=== PATIENT | male | born 1960 | race Hispanic/Latino ===

== ENCOUNTER 2017-09-08 20:35 | Emergency (ER) | payer MEDICARE ==
[2017-09-08] MEDS ORDERED: NARCAN 0.4 MG/1 ML IV ONE (21:11)
[2017-09-08 22:22] LABS: Hematocrit 39.8 % (35.5-45.6); Mean Corpuscular HGB Conc 33 % (32-34); Mean Corpuscular Hemoglobin 32 pg (28-32); Mean Corpuscular Volume 97 fl (84-94); Platelet Count 296 K/mm3 (140-440); Red Blood Count 4.11 M/mm3 (3.65-5.03); White Blood Count 9.6 K/mm3 (4.5-11.0)
[2017-09-08 22:24] LABS: Red Cell Distribution Width 20.2 % (13.2-15.2)
[2017-09-08 22:49] LABS: Urine Drugs of Abuse Note Disclamer
--- NOTE | 2017-09-08 23:00 | Emergency Department Report ---
History of Present Illness - General Chief Complaint: Overdose Stated Complaint: POSS OD Time Seen by Provider: 09/08/17 21:34 Source: patient, EMS Mode of arrival: Stretcher Limitations: No Limitations - History of Present Illness Initial Comments: Pt is a 57 yo male with a history of chronic pain who stated he was using a Fentanyl patch of 100ug. Pt stated that he was changing a tire and began experiencing his chronic back and bodyaches. Pt states that he began chewing his Fentanyl patch for faster absorption. Police went over to pt who apparently was having decreased respiration almost agonal, not making sense, and EMS was called. EMS gave pt 3mg of Narcan nasally. Pt denied suicidal or homicidal ideation. - Related Data Home Medications Medication Instructions Recorded Confirmed Last Taken ALPRAZolam [Xanax TAB] 2 mg PO HS PRN 09/08/17 09/08/17 1 Day Ago 2mg Allergies Allergy/AdvReac Type Severity Reaction Status Date / Time No Known Allergies Allergy Unverified 09/08/17 21:01 ED Review of Systems ROS: Stated complaint: POSS OD Other details as noted in HPI Respiratory: other (decreased breathing) Musculoskeletal: back pain (chronic) ED Past Medical Hx - Past Medical History Previous Medical History?: Yes Additional medical history: Back Pain - Surgical History Past Surgical History?: Yes Hx Cholecystectomy: Yes Additional Surgical History: R hip replacement, Gastric bypass. - Social History Smoking Status: Never Smoker Substance Use Type: Alcohol, Prescribed - Medications Home Medications: Home Medications Medication Instructions Recorded Confirmed Last Taken Type ALPRAZolam [Xanax TAB] 2 mg PO HS PRN 09/08/17 09/08/17 1 Day Ago History 2mg ED Physical Exam - General Limitations: No Limitations - Head Head exam: Present: atraumatic, normocephalic - Eye Eye exam: Present: normal appearance - ENT ENT exam: Present: mucous membranes moist - Respiratory Respiratory exam: Present: normal lung sounds bilaterally. Absent: respiratory distress - Cardiovascular Cardiovascular Exam: Present: regular rate, normal rhythm. Absent: systolic murmur, diastolic murmur, rubs, gallop - GI/Abdominal GI/Abdominal exam: Present: soft, normal bowel sounds. Absent: distended - Extremities Exam Extremities exam: Present: other (leg length discrepancy but wearing corrective heightened shoe) ED Course Vital Signs 09/08/17 20:40 Temperature 98.8 F Pulse Rate 123 H Respiratory 22 Rate Blood Pressure 143/89 O2 Sat by Pulse 90 Oximetry - Consultations Consultation #1: 09/08/17 23:11 [id number]- I had spoken with Dr Jose Manuel Odonnell who stated that there are no beds at any of the [place] facilities ([facility], [facility], [facility] ) and to admit the pt here. Consultation #2: 09/08/17 23:11 Dr Brown for admission ED Medical Decision Making - Lab Data Result diagrams: 09/08/17 21:29 Critical care attestation.: If time is entered above; I have spent that time in minutes in the direct care of this critically ill patient, excluding procedure time. ED Disposition Disposition: [id number] OP ADMIT IP TO THIS HOSP Is pt being admited?: Yes Does the pt Need Aspirin: No Condition: Stable Referrals: PRIMARY CARE, [Primary Care Provider] - 3-5 Days Time of Disposition: 23:10
[2017-09-08 23:17] LABS: Blastocytes % (Manual) 0 %; Eosinophils % (Manual) 0 % (0.0-4.3)
[2017-09-08 23:18] LABS: Anisocytosis 1+; Diff Status Complete; Platelet Estimate Consistent w Auto
[2017-09-08 23:28] LABS: Bilirubin,Urine Negative (Negative); Blood,Urine Negative (Negative); Ketones,Urine Trace mg/dL (Negative)
[2017-09-08 23:29] LABS: Nitrite,Urine Negative (Negative)
[2017-09-08 23:30] LABS: WBC,Urine > 182.0 /HPF (0.0-6.0)
[2017-09-08 23:31] LABS: Bacteria,Urine 2+ /HPF (Negative); Leukocyte Esterase,Urine Large (Negative)
[2017-09-09 00:03] VITALS: BP 133/80
== END 2017-09-09 00:03 | disposition admitted as inpatient to this hospital (09) ==
LOC: EEVIPCON 20:35 → ED 20:35
DX: M54.9 Dorsalgia, unspecified (principal); M79.1 Myalgia; G89.29 Other chronic pain
CPT/HCPCS: 36415; 80307; 81001; 85007; 85025